=== PATIENT | male | born 1960 | race Caucasian/White ===

== ENCOUNTER 2017-10-25 20:26 | Emergency (ER) | payer OTHER, BC ==
[2017-10-25] MEDS: HYDROCODONE/APAP (5/325) TAB PO (21:47)
== END 2017-10-25 23:35 | disposition home or self-care (01) ==
LOC: FTE 20:26
DX: S22.42XA Multiple fractures of ribs, left side, initial encounter for closed fracture (principal); E11.9 Type 2 diabetes mellitus without complications; W11.XXXA Fall on and from ladder, initial encounter; Y92.9 Unspecified place or not applicable
CPT/HCPCS: 71045; 71100; 71101-LT; 73130-LT; 76705; 93005; 99285-25